=== PATIENT | male | born 1960 | race Caucasian/White ===

== ENCOUNTER 2020-06-24 13:36 | Emergency (ER) | payer OTHER ==
[~2020-06-24] VITALS: Ht 190.5 cm; Wt 77.1 kg
[2020-06-24] MEDS ORDERED: TERAZOSIN HCL10 MG PO (14:11)
[2020-06-24] MEDS ORDERED: TRAMADOL 50 MG50 MG PO (14:33)
[2020-06-24 15:19] VITALS: BP 131/78
== END 2020-06-24 15:20 | disposition home or self-care (01) ==
LOC: ER 13:36
DX: M25.512 Pain in left shoulder (principal); M25.511 Pain in right shoulder; F17.210 Nicotine dependence, cigarettes, uncomplicated; Z79.899 Other long term (current) drug therapy